=== PATIENT | female | born 1980 | race Caucasian/White ===

== ENCOUNTER 2017-11-30 08:58 | Day surgery (SDC) | payer OTHER ==
[2017-11-29 13:20] VITALS: BMI 29.9
--- NOTE | 2017-11-30 09:56 | HP ---
Satellite H - Chief Complaint Chief Complaint: Umbilical bulge/hernia History of Present Illness: Presents for umbilical /ventral hernia repair History Source: Patient Limitations to Obtaining History: No Limitations - Past Medical History Allergies/Adverse Reactions: Allergies Allergy/AdvReac Type Severity Reaction Status Date / Time Penicillins Allergy Mild Itching Verified 11/29/17 13:20 ...LMP: 11/13/17 Additional Medical History: s/p cholecystectomy - Current Medications Current Medications: Home Medications Medication Instructions Recorded Docusate Sodium [Colace -] 100 mg PO TID #90 capsule 11/30/17 Oxycodone HCl/Acetaminophen 1 - 2 tab PO Q6H #28 tab MDD 4 11/30/17 [Percocet 5-325 mg Tablet] Satellite Physical Exam - Physical Examination Vital Signs: Vital Signs Period Temp Pulse Resp BP Sys/Puga Pulse Ox Last 24 Hr 98.0 F 77 18 123/45 98 General Appearance: Well Nourished Lung: Clear to auscultation Heart: Regular rate & rhythm Abdomen: Soft, Other (+ umbilical/ventral hernia) Neurological: Alert, Oriented Satellite Impression/Plan - Impression/Plan Impression: U,bilical/ventral hernia repair Operative Procedure: Laparoscopic possible open umbilical hernia repair with mesh Date to be Performed: 11/30/17
[2017-11-30] MEDS ORDERED: SUCCINYLCHOLINE CHLORIDE 200 MG/10 ML VIAL ONE (10:00)
[2017-11-30] MEDS ORDERED: fentaNYL CITRATE 250 MCG/5 ML VIAL ONE (10:00)
[2017-11-30] MEDS ORDERED: ROCURONIUM BROMIDE 50 MG/5 ML VIAL ONE ×2 (10:00→13:31)
[2017-11-30] MEDS ORDERED: PROPOFOL 20 ML ONE (10:00)
[2017-11-30] MEDS ORDERED: DEXAMETHASONE SOD PHOSPHATE 4 MG/1 ML VIAL ONE ×2 (10:01→12:15)
[2017-11-30] MEDS ORDERED: MIDAZOLAM HCL 2 MG/2 ML SINGLE DOSE VIAL ONE ×3 (10:01→10:12)
[2017-11-30] MEDS ORDERED: LIDOCAINE HCL/PF 2% SDV 5ML VIAL ONE (10:01)
[2017-11-30] MEDS ORDERED: BUPIVACAINE HCL/PF 0.5% (5MG/ML) 10 ML VIAL ONE (10:05)
[2017-11-30] MEDS ORDERED: CLINDAMYCIN 600 MG PREMIX BAG IVPB ONE (10:50)
[2017-11-30] MEDS ORDERED: CLINDAMYCIN PHOSPHATE 600 MG/4 ML VIAL ONE ×2 (10:58→12:59)
[2017-11-30] MEDS ORDERED: GLYCOPYRROLATE 0.2 MG/1 ML VIAL ONE ×2 (10:59→11:33)
[2017-11-30] MEDS ORDERED: BUPIVACAINE HCL/PF 0.5% (5MG/ML) 10 ML VIAL IJ ONE (11:30)
[2017-11-30] MEDS ORDERED: NEOSTIGMINE METHYLSULFATE 0.5 MG/ML - 10 ML MDV ONE (11:33)
--- NOTE | 2017-11-30 11:46 | OP ---
Operative Note - Note: Operative Date: 11/30/17 Pre-Operative Diagnosis: Incarcerated Umbilical hernia Operation: Lap umbilical hernia repair with mesh Post-Operative Diagnosis: Same as Pre-op Surgeon: Angel Crain [employer]ored Vehicle Officer: Adryan Pena Anesthesia: General Estimated Blood Loss (mls): 5 Fluid Volume Replaced (mls): 350 Operative Report Dictated: Yes
--- NOTE | 2017-11-30 11:48 | SURG ---
Surgery [facility] Note Sand Miller: Adryan Pena PA-C Date of Service: 11/30/17 Diagnosis: Incarcerated umbilical hernia Procedure: Lap umbilical hernia repair with mesh I was present for the entirety of the operative procedure. For further detail, please refer to operative report. Visit type - Case Type Case Type: Scheduled
[2017-11-30] MEDS ORDERED: KETOROLAC TROMETHAMINE 30 MG/1 ML VIAL ONE (12:20)
[2017-11-30] MEDS ORDERED: oxyCODONE HCL 5 MG TABLET PO PRN ×2 (12:54)
[2017-11-30] MEDS ORDERED: ONDANSETRON 4 MG/2 ML VIAL IVPUSH PRN (12:54)
[2017-11-30] MEDS ORDERED: LACTATED RINGERS SOLUTION 1,000 ML IV SCH (13:00)
[2017-11-30] MEDS ORDERED: KETOROLAC TROMETHAMINE 30 MG/1 ML VIAL IVPUSH ONE (13:32)
--- NOTE | 2017-11-30 16:08 | OP ---
DATE OF OPERATION: 11/30/2017 SURGEON: Angel Crain M.D. PSYCHIC READER: Uzair Love, and Adryan Kim PREOPERATIVE DIAGNOSIS: Ventral/umbilical hernia. POSTOPERATIVE DIAGNOSIS: Ventral/umbilical hernia. PROCEDURE: 1. Diagnostic laparoscopy. 2. Laparoscopic umbilical/ventral hernia repair, both primary as well as with mesh. 3. Laparoscopic lysis of adhesions. SPECIMEN: None. ESTIMATED BLOOD LOSS: 30 mL . DRAINS: None. ANESTHESIA: GET MESH: A 12-cm Symbotec mesh. REASON FOR PROCEDURE: This is a 37-year-old female who presents for a pain and a bulge at the supraumbilical area consistent with a ventral/umbilical hernia. After describing different options, it was decided to proceed with a laparoscopic possible open ventral/umbilical hernia repair with mesh . The risks and benefits of the procedure were explained, these including bleeding, infection, recurrence of hernia, injury to intraabdominal organs including the bowel, colon, stomach, vessel injury, nerve injury, as well as injury to other structures, PA, DVT, PE, some of the possible complications. She understood and signed informed consent. DESCRIPTION OF PROCEDURE: Patient was placed supine on the operating room table. She underwent general endotracheal intubation. The abdomen was prepped and draped in sterile fashion. Timeout was performed. A 5-mm incision was made in the left upper quadrant. Veress needle was inserted. Pneumoperitoneum was established. The Veress needle was removed, and a 5-mm Optiview trocar was placed under direct visualization with the laparoscope. Subsequently a 12-mm trocar was placed in the left lateral abdominal wall, and a 5-mm trocar placed in the left lower quadrant. Patient was placed in a slight left lateral decubitus position. The hernia was noted, and there were adhesions that were seen to be adherent to it. Because of this, laparoscopic lysis of adhesions was performed. Once the adhesiolysis was completed and hemostasis was noted, the hernia was noted to be a defect of approximately 3 cm x 3 cm in size. At this point, a small stab wound incision was made near the hernia site on the overlying skin. The fascia was closed in a primary fashion using Abdirahman Jalil device with 0 Vicryl suture. At that point, a 12-cm mesh was then chosen and placed within the abdominal cavity. This was secured, covering the hernia defect with absorbable tack sutures. The mesh was noted to be completely secured and in position. At this point, pneumoperitoneum was desufflated, and all trocars were removed. Prior to pneumoperitoneum being desufflated, the fascia at the 12-mm trocar site was also closed using 0 Vicryl suture with the Abdirahman Jalil device. Pneumoperitoneum was then desufflated. The skin incisions were closed using 4-0 Biosyn. Marcaine was injected at all sites. The patient tolerated the procedure well, transferred to recovery room in stable condition. Evelyn [id number]
[2017-11-30 17:10] VITALS: BP 108/70; TEMP 98
[2017-11-30 17:46] VITALS: PULSE 68
== END 2017-11-30 17:15 | disposition home or self-care (01) ==
LOC: JASU-SURG 08:58
PROVIDERS: ATTEND Surgery
PROC: 0WUF4JZ Supplement Abdominal Wall with Synthetic Substitute, Percutaneous Endoscopic Approach (ICD-10-PCS; principal; 2017-11-30 11:00)
DX: K42.9 Umbilical hernia without obstruction or gangrene (principal); K43.9 Ventral hernia without obstruction or gangrene
CPT/HCPCS: 84703; 94760

== ENCOUNTER 2020-06-30 07:53 | Emergency (ER) | payer OTHER ==
[2020-06-30 08:09] VITALS: BP 105/48; PULSE 73; TEMP 97.8; BMI 36.6
[2020-06-30] MEDS ORDERED: IBUPROFEN 600 MG TABLET (FP) PO ONE (08:38)
== END 2020-06-30 10:47 | disposition home or self-care (01) ==
LOC: JERFT 07:53
DX: S13.4XXA Sprain of ligaments of cervical spine, initial encounter (principal); V89.2XXA Person injured in unspecified motor-vehicle accident, traffic, initial encounter
CPT/HCPCS: 72040-TC; 72070-TC-FY; 99284-25